=== PATIENT | female | born 1945 | race American Indian/Alaskan Native ===

== ENCOUNTER 2019-01-06 10:01 | Outpatient (CLI) | payer MEDICARE, MEDICAID | END 2019-01-06 10:02 | disposition home or self-care (01) | LOC: LABHHL 10:01 | PROVIDERS: ATTEND Surgery | DX: C50.412 Malignant neoplasm of upper-outer quadrant of left female breast (principal) | CPT/HCPCS: 88305; 88341; 88342 ==

== ENCOUNTER 2019-01-22 11:19 | Outpatient (CLI) | payer MEDICARE ==
--- NOTE | 2019-01-22 15:07 | PET Report ---
PET/CT HISTORY: C50.919. Initial staging of breast cancer TECHNIQUE: The patient's fasting blood glucose was 107. The patient weighed 120 lbs. The patient w as injected with 14.9 mCi of FDG in the right hand at 1200 hours and imaging was started at 1302 hour s. The patient was imaged from the skull base to the thighs. All CT scans at this location are perfo rmed using CT dose reduction for ALARA by means of automated exposure control. Images were reviewed o n a workstation. COMPARISON: No relevant comparison FINDINGS: IMAGED BRAIN: [Physiologic FDG uptake] NECK: [Physiologic FDG uptake] CHEST WALL: [A 1.8 cm central right breast mass containing a biopsy clip is identified with max SUV measuring 10.3. A second 1.1 cm right breast mass slightly inferior and lateral to the larger mass de monstrates a max SUV of 4.9] MEDIASTINUM: [Physiologic FDG uptake] LUNGS: [Physiologic FDG uptake] HEPATOBILIARY: [Physiologic FDG uptake] PANCREAS: [Physiologic FDG uptake SPLEEN: [Physiologic FDG uptake] KIDNEYS/BLADDER: [Physiologic FDG uptake] ADRENAL GLANDS: [Physiologic FDG uptake] GI/MESENTERY: [Physiologic FDG uptake] PELVIC VISCERA: [Physiologic FDG uptake] LYMPH NODES: [There are at least 2 enlarged right axillary lymph nodes measuring up to 2.6 cm in jeanne g axis and demonstrate a max SUV of 9.3. A third 1 cm right axillary lymph node demonstrates a max BECERRA V of 3.5..] OSSEOUS STRUCTURES: [Physiologic FDG uptake] ADDITIONAL FINDINGS: [None] IMPRESSION: There are 2 hypermetabolic right breast masses consistent with primary right breast cancer as descri bed above. At least 3 hypermetabolic right axillary lymph nodes are identified consistent with metast atic lesions. No evidence for pulmonary, hepatic or bony metastasis. Signer Name: Corona Olmedo Jr, MD Signed: 01/22/2019 3:02 PM Workstation Name: [id number]
== END 2019-01-22 11:20 | disposition home or self-care (01) ==
LOC: PET 11:19
PROVIDERS: ATTEND Internal Medicine Hematology
DX: C50.919 Malignant neoplasm of unspecified site of unspecified female breast (principal)
CPT/HCPCS: 78815; 82962; A9552

== ENCOUNTER 2019-02-02 13:11 | Outpatient (CLI) | payer MEDICARE ==
--- NOTE | 2019-02-03 12:09 | Magnetic Resonance Report ---
BILATERAL BREAST MR WITHOUT AND WITH GADOLINIUM INDICATION: Known right breast cancer treated with 6 cycles of chemotherapy starting 08/31/2016. Pedraza cari, she never had focal excision of the cancer. She also had a benign MRI guided left breast biopsy COMPARISONS: 12/18/2018 bilateral diagnostic mammogram. TECHNIQUE: Axial 1.0 mm T1 without, axial high-resolution 2.0 mm T2 and axial 1.0 mm dynamic vibrant high-resolution postcontrast T1 fat saturation sequences on a 1.5 [place] magnet. The examination was p erformed with an 8-channel dedicated [place] breast coil. Post-processing with CAD and subtraction was performed on an [employer] workstation. 12.0 cc of MultiHance was injected without incident for the c ontrast portion of the exam. Consent was obtained prior to the administration of the contrast. FINDINGS: RIGHT BREAST: Minimal background parenchymal enhancement. The known cancer is an irregular upper oute r quadrant mass measuring 1.6 x 1.9 x 1.4 cm. It demonstrates heterogeneous peripheral enhancement, 2 42% peak enhancement and 50% type III washout. The center of the mass demonstrates less enhancement a nd there is a biopsy clip within the mass. A second highly suspicious mass is identified 1 cm inferio r to the known cancer and it measures 1.4 x 0.7 x 1.2 cm. It demonstrates heterogeneous enhancement w ith mixed kinetics, 517% peak enhancement and 30% type III washout. No other mass or suspicious enhan cement. A cluster of 2 highly suspicious right axillary lymph nodes measures 4.1 x 1.5 cm. Several ad ditional smaller suspicious right axillary lymph nodes. LEFT BREAST: Minimal background parenchymal enhancement. No mass or suspicious enhancement. A 2.1 cm left axillary lymph node demonstrates a thickened cortex of measuring 5 mm maximum. IMPRESSION: 1. A 1.9 cm known right breast cancer and a second highly suspicious 1.4 cm right upper outer breast mass within 1 cm of the known cancer. 2. Right axillary metastatic lymphadenopathy. 3. Negative left breast but 1 suspicious left axillary lymph node with a 5 mm thick cortex. BI-RADS Category 6: Known Cancer Signer Name: Chino Enriquez MD Signed: 02/03/2019 12:04 PM Workstation Name: [id number]
== END 2019-02-02 13:12 | disposition home or self-care (01) ==
LOC: SPVIMAG 13:11
PROVIDERS: ATTEND Internal Medicine Hematology
DX: C50.911 Malignant neoplasm of unspecified site of right female breast (principal)
CPT/HCPCS: A9577; C8908; 77049

== ENCOUNTER 2019-03-11 09:38 | Outpatient (CLI) | payer MEDICARE ==
--- NOTE | 2019-03-11 12:13 | Ultrasound Report ---
ULTRASOUND-GUIDED NEEDLE CORE BIOPSY LEFT AXILLARY LYMPH NODE WITH CLIP PLACEMENT CLINICAL: Newly diagnosed right breast cancer and an abnormal left axillary lymph node by MRI. FINDINGS: The procedure was explained to the patient and informed consent was obtained. Ultrasound demonstrated the previously identified lymph node. I marked the skin with a felt tip marker and a timeout was called. The skin was prepped with Chloro-P rep and anesthetized with 1% lidocaine. Needle core biopsy was performed through small dermatotomy using ultrasound guidance, 2% lidocaine wi th epinephrine for deep anesthesia and a coaxial 18-gauge Achieve biopsy device. 2 cores were obtaine d and placed in formalin. A clip was deployed within the lymph node. The patient tolerated the procedure well and there were no apparent complications. Hemostasis was ach ieved with minimal effort and a sterile dressing was applied. IMPRESSION: Uncomplicated ultrasound guided needle core biopsy with clip placement left axillary lymp h node. Signer Name: Chino Enriquez MD Signed: 03/11/2019 12:08 PM Workstation Name: [id number]
== END 2019-03-11 09:39 | disposition home or self-care (01) ==
LOC: SPVWC 09:38
PROVIDERS: ATTEND Surgery
DX: C50.911 Malignant neoplasm of unspecified site of right female breast (principal); R59.0 Localized enlarged lymph nodes; Z88.0 Allergy status to penicillin
CPT/HCPCS: 38505; 76942; 88305; 88342; A4648